=== PATIENT | female | born 1990 | race Caucasian/White ===

== ENCOUNTER 2017-11-16 21:21 | Emergency (ER) | payer SELFPAY ==
[~2017-11-16] VITALS: Ht 167.6 cm; Wt 90.7 kg
[2017-11-16 22:46] LABS: BILIRUBIN,URINE NEGATIVE (NEG); CLARITY,URINE CLEAR; COLOR,URINE YELLOW; NITRITE,URINE NEGATIVE (NEG); PH,URINE 7.5; PROTEIN,URINE NEGATIVE (NEG-TRACE); UROBILINOGEN,URINE 0.2 mg/dL (0.2 mg/dL)
[2017-11-16 22:54] LABS: BACTERIA,URINE FEW /HPF (0-FEW); RBC,URINE OCC /HPF (0-2); SQUAMOUS EPITHELIAL CELL,UR MOD /LPF
[2017-11-16] MEDS: IOHEXOL 300 MG/ML 100ML VIAL. IV ONE (23:15)
[2017-11-16] MEDS: IV NORMAL SALINE 1000ML BAG 1,000 ML IV ONE (23:15)
[2017-11-16] MEDS ORDERED: CONTRAST GIVEN. MC PRN (23:15)
--- NOTE | 2017-11-16 23:16 | PHYS DOC ---
Past Medical History Past Medical History: IBS Past Surgical History: Tonsillectomy Alcohol Use: Rarely Drug Use: None Adult General Chief Complaint Chief Complaint: ABDOMINAL PAIN HPI HPI 27 y/o female presents to ER for c/o lower abd pain which started on Thursday. Pt reports she was seen at [facility] last night and had US and was told she had 2.9 ovarian cyst with pt reporting hx of cysts. She reports she continued to have pain and so at her work she had "under the table" CT of her abd without contrast done- she reports radiologist at her work told her "possibly had an abscess on colon". Pt denies any urinary sxs, fever/chills, abd distention, N/V , or vaginal sxs. LMP 10/31/17. Pt reports she had old Rx of Bentyl at home which she used Sat/Sun with no relief in sxs. Review of Systems Review of Systems Constitutional: Denies fever or chills [] Eyes: Denies change in visual acuity, redness, or eye pain [] HENT: Denies nasal congestion or sore throat [] Respiratory: Denies cough or shortness of breath [] Cardiovascular: No additional information not addressed in HPI [] GI: Denies abdominal pain, nausea, vomiting, bloody stools or diarrhea [] : Denies dysuria or hematuria [] Musculoskeletal: Denies back pain or joint pain [] Integument: Denies rash or skin lesions [] Neurologic: Denies headache, focal weakness or sensory changes [] Endocrine: Denies polyuria or polydipsia [] All other systems were reviewed and found to be within normal limits, except as documented in this note. Current Medications Current Medications Current Medications Medications (Trade) Dose Ordered Sig/Belinda Start Time Stop Time Status Last Admin Dose Admin Dicyclomine HCl (Bentyl) 20 mg 1X ONCE 11/16/17 23:15 11/16/17 23:16 DC 11/16/17 23:32 20 MG Info (CONTRAST GIVEN -- Rx MONITORING) 1 each PRN DAILY PRN 11/16/17 23:15 11/18/17 23:14 Iohexol (Omnipaque 300 Mg/ml) 75 ml 1X ONCE 11/16/17 23:15 11/16/17 23:16 DC 11/16/17 23:15 75 ML Sodium Chloride 1,000 ml @ 1,000 mls/hr 1X ONCE 11/16/17 23:15 11/17/17 00:14 DC 11/16/17 23:15 1,000 MLS/HR Allergies Allergies Allergies Coded Allergies Type Severity Reaction Last Updated Verified Penicillins Allergy Unknown 11/16/17 Yes levofloxacin Allergy Unknown 11/16/17 Yes Physical Exam Physical Exam Constitutional: Well developed, well nourished, no acute distress, non-toxic appearance. [] HENT: Normocephalic, atraumatic, bilateral external ears normal, oropharynx moist, no oral exudates, nose normal. [] Eyes: PERRLA, EOMI, conjunctiva normal, no discharge. [] Neck: Normal range of motion, no tenderness, supple, no stridor. [] Cardiovascular:Heart rate regular rhythm, no murmur [] Lungs & Thorax: Bilateral breath sounds clear to auscultation [] Abdomen: Bowel sounds normal, soft, no tenderness, no masses, no pulsatile masses. [] Skin: Warm, dry, no erythema, no rash. [] Back: No tenderness, no CVA tenderness. [] Extremities: No tenderness, no cyanosis, no clubbing, ROM intact, no edema. [] Neurologic: Alert and oriented X 3, normal motor function, normal sensory function, no focal deficits noted. [] Psychologic: Affect normal, judgement normal, mood normal. [] Current Patient Data Vital Signs Vital Signs Date Time Temp Pulse Resp B/P (MAP) Pulse Ox O2 Delivery O2 Flow Rate FiO2 11/16/17 22:10 98.8 85 18 130/79 (96) 98 Room Air 98.8 Lab Values Laboratory Tests Test 11/16/17 21:30 11/16/17 22:12 11/16/17 23:15 Urine Collection Type Unknown Urine Color Yellow Urine Clarity Clear Urine pH 7.5 Urine Specific [place] 1.010 Urine Protein Negative mg/dL (NEG-TRACE) Urine Glucose (UA) Negative mg/dL (NEG) Urine Ketones (Stick) Negative mg/dL (NEG) Urine Blood Negative (NEG) Urine Nitrite Negative (NEG) Urine Bilirubin Negative (NEG) Urine Urobilinogen Dipstick 0.2 mg/dL (0.2 mg/dL) Urine Leukocyte Esterase Trace (NEG) Urine RBC Occ /HPF (0-2) Urine WBC 1-4 /HPF (0-4) Urine Squamous Epithelial Cells Mod /LPF Urine Bacteria Few /HPF (0-FEW) POC Urine HCG, Qualitative Hcg negative (Negative) White Blood Count 9.6 x10^3/uL (4.0-11.0) Red Blood Count 4.65 x10^6/uL (3.50-5.40) Hemoglobin 13.8 g/dL (12.0-15.5) Hematocrit 39.7 % (36.0-47.0) Mean Corpuscular Volume 85 fL (79-100) Mean Corpuscular Hemoglobin 30 pg (25-35) Mean Corpuscular Hemoglobin Concent 35 g/dL (31-37) Red Cell Distribution Width 13.1 % (11.5-14.5) Platelet Count 324 x10^3/uL (140-400) Neutrophils (%) (Auto) 49 % (31-73) Lymphocytes (%) (Auto) 39 % (24-48) Monocytes (%) (Auto) 10 % (0-9) H Eosinophils (%) (Auto) 2 % (0-3) Basophils (%) (Auto) 1 % (0-3) Neutrophils # (Auto) 4.7 x10^3uL (1.8-7.7) Lymphocytes # (Auto) 3.7 x10^3/uL (1.0-4.8) Monocytes # (Auto) 0.9 x10^3/uL (0.0-1.1) Eosinophils # (Auto) 0.2 x10^3/uL (0.0-0.7) Basophils # (Auto) 0.1 x10^3/uL (0.0-0.2) Sodium Level 138 mmol/L (136-145) Potassium Level 3.9 mmol/L (3.5-5.1) Chloride Level 100 mmol/L (98-107) Carbon Dioxide Level 27 mmol/L (21-32) Anion Gap 11 (6-14) Blood Urea Nitrogen 9 mg/dL (7-20) Creatinine 0.8 mg/dL (0.6-1.0) Estimated GFR (Cockcroft-Gault) 84.8 BUN/Creatinine Ratio 11 (6-20) Glucose Level 94 mg/dL (70-99) Calcium Level 9.8 mg/dL (8.5-10.1) Total Bilirubin 0.5 mg/dL (0.2-1.0) Aspartate Amino Transferase (AST) 19 U/L (15-37) Alanine Aminotransferase (ALT) 32 U/L (14-59) Alkaline Phosphatase 124 U/L (46-116) H Total Protein 9.0 g/dL (6.4-8.2) H Albumin 3.9 g/dL (3.4-5.0) Albumin/Globulin Ratio 0.8 (1.0-1.7) L Lipase 101 U/L (73-393) Laboratory Tests 11/16/17 23:15 Laboratory Tests 11/16/17 23:15 EKG EKG [] Radiology/Procedures Radiology/Procedures PROCEDURE: CT ABD PELV W/ IV CONTRST ONLY PQRS Compliance statement: One or more of the following individualized dose reduction techniques were utilized for this examination: 1. Automated exposure control. 2. Adjustment of the mA and/or kV according to patient size. 3. Use of iterative reconstruction technique. Indication:UMBILICAL ABD PAIN TECHNIQUE: CT abdomen and pelvis with IV contrast with multiplanar reformats. COMPARISON: None FINDINGS: Heart is normal in size. No pericardial or pleural effusion. Clear lung bases. Liver, spleen, gallbladder, pancreas, adrenals and kidneys are within normal limits. No enlarged retroperitoneal or pelvic adenopathy. No free pelvic fluid or ascites. Normal appendix. No bowel obstruction. Small area of fat stranding is seen adjacent to the proximal sigmoid colon without loculated fluid collection. Anteverted uterus. Urinary bladder within normal limits. Bilateral ovaries are seen. No pneumoperitoneum. No suspicious bony lesion. IMPRESSION: 1. Small area of fat stranding adjacent to the proximal sigmoid colon compatible with epiploic appendagitis. 2. No bowel obstruction. No diverticulosis. Normal appendix. Electronically signed by: Matt Rader DO (11/17/2017 12:13 AM) [facility] DICTATED and SIGNED BY: MATT RADER DO DATE: 11/17/17 0008 Course & Med Decision Making Course & Med Decision Making Pertinent Labs and Imaging studies reviewed. (See chart for details) Discussed pt's case and plan of care with Dr. Kumar- pt will have labs, UA, and CT abd/pelvis. Discussed pelvic exam with pt and she prefers not to have done while in ER. 0028: Pt reports with IM Bentyl lower abd pain improved. She is in no distress at this time. Discussed lab and CT abd/pelvis results with pt. Discussed plans for Rxs for Cipro/flagyl. Pt had Levaquin as allergy on paperwork but she reports she has taken levaquin in past and had no reaction and is uncertain if that is true allergy. Pt states she had sinus surg. in past and was on multiple medications so could have been other medication causing itching/rash on arms. She denies any anaphylactic reactions and feels comfortable with Rx for Cipro as discussed. Will provide pt with Rx for Bentyl and community resources for clinics/physicians to f/u with. Discussed GI f/u however pt has limitations d/t finances/insurance and doesn't feel she will be able to do this. Dragon Disclaimer Dragon Disclaimer This electronic medical record was generated, in whole or in part, using a voice recognition dictation system. Departure Departure Impression: Primary Impression: Abdominal pain Disposition: HOME, SELF-CARE Condition: STABLE Referrals: NO PCP (PCP) Patient Instructions: Abdominal Pain Additional Instructions: You are being provided with antibiotics as discussed for your abdominal pain- you can take over the counter probiotics while on these. Avoid alcohol while taking Flagyl and for 3 days after completion of this medication. [place] diet avoid acidic/spicy foods. Plenty of water. You should follow-up with a GI (gastrointestinal) doctor for further care/ evaluation. Scripts Dicyclomine Hcl (DICYCLOMINE HCL) 10 Mg Capsule 10 MG PO QID PRN for abdominal pain, #14 CAP 0 Refills Prov: MODE MADISON APRN 11/17/17 Metronidazole (FLAGYL) 500 Mg Tablet 1 TAB PO BID, #14 TAB 0 Refills Prov: MODE MADISON APRN 11/17/17 Ciprofloxacin Hcl (CIPRO) 500 Mg Tablet 1 TAB PO BID, #14 TAB 0 Refills Prov: MODE MADISON APRN 11/17/17 MODE MADISON APRN Nov 16, 2017 23:16
[2017-11-16 23:27] LABS: BASO # 0.1 x10^3/uL (0.0-0.2); BASO % 1 % (0-3); EOS # 0.2 x10^3/uL (0.0-0.7); EOS % 2 % (0-3); HEMATOCRIT 39.7 % (36.0-47.0); HEMOGLOBIN 13.8 g/dL (12.0-15.5); LYMPH # 3.7 x10^3/uL (1.0-4.8); LYMPH % 39 % (24-48); MEAN CORPUSCULAR HEMOGLOBIN 30 pg (25-35); MEAN CORPUSCULAR HGB CONC 35 g/dL (31-37); MEAN CORPUSCULAR VOLUME 85 fL (79-100); MONO # 0.9 x10^3/uL (0.0-1.1); MONO % 10 % (0-9); NEUT # 4.7 x10^3uL (1.8-7.7); NEUT % 49 % (31-73); PLATELET COUNT 324 x10^3/uL (140-400); RED BLOOD COUNT 4.65 x10^6/uL (3.50-5.40); RED CELL DISTRIBUTION WIDTH 13.1 % (11.5-14.5); WHITE BLOOD COUNT 9.6 x10^3/uL (4.0-11.0)
[2017-11-16] MEDS: DICYCLOMINE 20 MG/2 ML AMPUL. IM ONE (23:32)
[2017-11-16 23:39] LABS: CALCIUM 9.8 mg/dL (8.5-10.1); CREATININE 0.8 mg/dL (0.6-1.0); GFR 84.8; POTASSIUM 3.9 mmol/L (3.5-5.1)
[2017-11-16 23:45] LABS: ALBUMIN 3.9 g/dL (3.4-5.0); ALBUMIN/GLOBULIN RATIO 0.8 (1.0-1.7); TOTAL BILIRUBIN 0.5 mg/dL (0.2-1.0)
--- NOTE | 2017-11-17 00:17 | RAD ---
PQRS Compliance statement: One or more of the following individualized dose reduction techniques were utilized for this examination: 1. Automated exposure control. 2. Adjustment of the mA and/or kV according to patient size. 3. Use of iterative reconstruction technique. Indication:UMBILICAL ABD PAIN TECHNIQUE: CT abdomen and pelvis with IV contrast with multiplanar reformats. COMPARISON: None FINDINGS: Heart is normal in size. No pericardial or pleural effusion. Clear lung bases. Liver, spleen, gallbladder, pancreas, adrenals and kidneys are within normal limits. No enlarged retroperitoneal or pelvic adenopathy. No free pelvic fluid or ascites. Normal appendix. No bowel obstruction. Small area of fat stranding is seen adjacent to the proximal sigmoid colon without loculated fluid collection. Anteverted uterus. Urinary bladder within normal limits. Bilateral ovaries are seen. No pneumoperitoneum. No suspicious bony lesion. IMPRESSION: 1. Small area of fat stranding adjacent to the proximal sigmoid colon compatible with epiploic appendagitis. 2. No bowel obstruction. No diverticulosis. Normal appendix. Electronically signed by: Matt Urbina DO (11/17/2017 12:13 AM) [facility]
[2017-11-17] MEDS ORDERED: CIPR500T94 PO (00:44)
[2017-11-17] MEDS ORDERED: METR500T PO (00:44)
[2017-11-17] MEDS ORDERED: DICY10CA3 PO (00:47)
[2017-11-17 00:55] VITALS: BP 142/86
== END 2017-11-17 00:54 | disposition home or self-care (01) ==
LOC: ER 21:21
DX: R10.30 Lower abdominal pain, unspecified (principal); Z90.89 Acquired absence of other organs; Z88.0 Allergy status to penicillin; Z88.1 Allergy status to other antibiotic agents
CPT/HCPCS: 36415; 74177; 80053; 81001; 81025; 83690; 85025; 87086; 96372; 99285; J0500; J7030; Q9967